=== PATIENT | female | born 1975 | race African-American/Black ===

== ENCOUNTER 2017-10-08 02:57 | Emergency (ER) | payer OTHER ==
[~2017-10-08] VITALS: Ht 162.6 cm; Wt 73.5 kg
[2017-10-08 03:22] VITALS: BP 112/52
[2017-10-08] MEDS ORDERED: HYDROcodone-ACET 10/325MG TAB PO ONE (04:00)
== END 2017-10-08 05:04 | disposition home or self-care (01) ==
LOC: ER 03:06
DX: S63.255A Unspecified dislocation of left ring finger, initial encounter (principal); Y08.89XA Assault by other specified means, initial encounter; Y93.89 Activity, other specified; Y92.89 Other specified places as the place of occurrence of the external cause; Y99.8 Other external cause status
CPT/HCPCS: 26770; 73130

== ENCOUNTER 2024-08-04 16:29 | Emergency (ER) | payer MEDICAID ==
[~2024-08-04] VITALS: Ht 162.6 cm; Wt 83.0 kg
--- NOTE | 2024-08-04 17:39 | ED.PDOC ---
Musculoskeletal HPI Comments HPI: Poor Historian. 49-year-old female presents to the ED complaining of right ankle pain status post trip and fall a week ago going down the stairs. Denies any other injuries. No loss of consciousness. Patient points to her medial and lateral aspect of her right ankle. She said she twisted her ankle when she landed on the step. Patient is neurovascularly intact in the affected extremity. Patient is ambulating with crutches on arrival. Past Medical History: Denies any Past Surgical History: Denies any REVIEW OF SYSTEMS: CONSTITUTIONAL: Denies acute: fever, diaphoresis, chills, generalized weakness. HEAD: Denies acute: headache, photophobia Eyes: Denies acute: Double vision, vision loss, eye pain, eye discharge. EARS: Denies acute: tinnitus, hearing loss, ear discharge, ear pain, THROAT: Denies acute: sore throat, swelling, difficulty swallowing , pain with swallowing, change in voice. NECK: Denies acute: neck pain, neck swelling, stiff neck. HEART: Denies acute : chest pain, palpitations, LUNGS: Denies acute: SOB, wheezing, cough, hemoptysis ABDOMEN: Denies acute: abdominal pain, Nausea, Vomiting, diarrhea, melena , hematemesis, hematochezia SKIN: Denies acute: rash, redness, lesions, itchiness. EXTREMITIES: Denies acute: calf pain, numbness, tingling, weakness, Denies acute: Low back pain. Neuro: Denies acute: focal neurological deficit, motor or sensory focal neurological deficit, tremors, seizure like activity, confusion, dizziness, change in mental status, loss of bowel or bladder function, cauda equina like symptoms. : Denies acute: dysuria, hematuria, flank pain, increase in urinary frequency. PSYCH: Denies acute: hallucination, suicidal ideation, homicidal ideation. FEMALE: Denies acute: abnormal vaginal bleeding, foul odor, unusual discharge. PHYSICAL EXAM: General: --mild------acute distress, awake and alert. Head: normocephalic, atraumatic. Neck: supple, trachea is midline, no swelling. Throat: Normal phonation. Eyes:, no erythema, no purulent discharge, no proptosis, no icterus. Heart: regular rate, regular rhythm, no significant murmur appreciated. Lungs: no apparent respiratory distress, Able to speak in full sentences. No wheezing, no rhonchi, no crackles. No stridors Clear to auscultation bilaterally. Abdomen: non tender to palpation, non distended, soft, no guarding, no rebound, + bowel sounds. Neuro: Awake, Alert, oriented to name, self, situation, follows commands GCS=15. Speech is normal. Skin: no petechia, no purpura, no cyanosis, non-pale, not jaundice. Evaluation of the area of complaint: NEUROVASCULARLY INTACT. NOTED MINIMAL ANKLE SWELLING AND FOCAL TENDERNESS TO PALPATION. NO APPARENT DEFORMITY OR ERYTHEMA. Makes eye contact. moves all four extremities. Face: no apparent facial droop. Pedal pulses are palpable. ED COURSE: Chief Complaint: Lower Extremity Time Seen by MD: 17:01 Primary Care Provider: DR. JACOB Reviewed Notes: Nurses Notes, Allergies Allergies: Coded Allergies: NO KNOWN ALLERGIES (Unverified , 10/08/17) Information Source: Patient Location: Right Was a procedure done? Was a procedure done?: No Differential Diagnosis EXT Differential Diagnosis: Cellulitis, CHF, Deep Vein Thrombosis, Compartment Syndrome, Fracture, Sprain, Dislocation, Laceration, Gout, DJD, Myocardial Inf arction, Contusion, Strain, Rheumatoid, Septic, Neurovascular injury, Arthritis, Bursitis X-Ray, Labs, Meds, VS Vital Signs Date Time Temp Pulse Resp B/P (MAP) Pulse Ox O2 Delivery O2 Flow Rate FiO2 08/04/24 18:48 98.1 77 18 143/83 (103) 97 98.1 08/04/24 18:48 77 18 97 Room Air 08/04/24 17:00 98.8 93 18 149/83 (105) [address] [address] Ph: [phone] DIAGNOSTIC IMAGING Diagnostic Imaging Report : [id number] Signed PATIENT: SAUL LUQUE ACCT: [id number] UNIT: [id number] : 1975 LOC: ER ROOM / BED: / AGE / SEX: 49 / F ADM STATUS: REG ER SERVICE 01 ORDERING PHYSICIAN: ROBERTO CARLOS BARROSO DO PROCEDURE(s): RANKL - R ANKLE 3 VIEW REASON: r ankle pain injury ORDER NUMBER(s): [id number], ACCESSION NUMBER(s): [id number] CLINICAL INDICATION: r ankle pain injury TECHNIQUE: 3 radiographic views of the right ankle were obtained. Comparison: None FINDINGS/IMPRESSION: There is mm density inferior to the lateral malleolus which may represent a small avulsed bony fragment. Recommend correlation with point tenderness. No dislocation. Mild ankle soft tissue edema. ATED BY: PINA BURR DO DICTATED DATE/TIME: 08/04/241813 SIGNED BY: PINA BURR DO SIGNED DATE/TIME: 08/04/241813 CC: Time of 1ST Reevaluation: 18:35 Reevaluation 1ST: Unchanged Patient Education/Counseling: Diagnosis, Treatment Family Education/Counseling: Other Comments Patient presented with the above HPI.---ankle pain injury---workup was initiated. patient was found with the above mentioned diagnosis. the following medications were ordered: please refer to order lists of meds and tests obtained by myself Dr. Barroso. Patient ED course and VS have been stabilized. Patient has been reassessed in the ED and remained in a stable condition. Pertinent incidental findings were discussed with the patient and/or family. Patient/family voices understanding and is agreeable with plan. Patient has been observed in the ED adequate length of time to insure improvement/stability. Escalation of care considered: Consideration of escalation to observation or admission Patient was DISCHARGED home in a stable condition. All the reports of any imaging studies that were ordered by myself were reviewed by myself. Departure 1 Departure Time of Disposition: 18:00 Impression: Primary Impression: Right ankle sprain Disposition: HOME / SELF CARE / HOMELESS Condition: Stable Additional Instructions: Additional instructions: You MUST follow-up with your primary care/family doctor in 1 to 2 days. If you are unable to see your primary care/family doctor, please return to our emergency room for re-assessment and re-evaluation in 1 to 2 days. Return to the emergency room here in our facility or to the nearest ER [facility] if your symptoms change or worsen. CONSULTATIONS: you MUST Follow-up for consultation as soon as possible with: -orthopedic doctor in 1-2 days. Please call for appointment. You MUST call the consultants office yourself to make an appointment. You may need to arrange that through your insurance and/or your primary/family doctor. If you are unable to see the systems development consultant in 1 to 2 days, you must return to our emergency room (or any other ER of your choice) for re-assessment and re- evaluation. Adequate fluid hydration. Leg elevation, ice, [id number] Tylenol ibuprofen for pain control. Below is a copy of your radiological report for follow up: [facility] [id number] [place] [address] Ph: [phone] DIAGNOSTIC IMAGING Diagnostic Imaging Report : [id number] Signed PATIENT: SAUL LUQUE ACCT: [id number] UNIT: [id number] : 1975 LOC: ER ROOM / BED: / AGE / SEX: 49 / F ADM STATUS: REG ER SERVICE 01 ORDERING PHYSICIAN: ROBERTO CARLOS BARRSOO DO PROCEDURE(s): RANKL - R ANKLE 3 VIEW REASON: r ankle pain injury ORDER NUMBER(s): [id number], ACCESSION NUMBER(s): [id number] CLINICAL INDICATION: r ankle pain injury TECHNIQUE: 3 radiographic views of the right ankle were obtained. Comparison: None FINDINGS/IMPRESSION: There is mm density inferior to the lateral malleolus which may represent a small avulsed bony fragment. Recommend correlation with point tenderness. No dislocation. Mild ankle soft tissue edema. ATED BY: PINA BURR DO DICTATED DATE/TIME: 08/04/241813 SIGNED BY: PINA BURR DO SIGNED DATE/TIME: 08/04/241813 CC: Discharged With: Self I personally scribed for ROBERTO CARLOS BARROSO DO ([email or web address]) on 08/04/24 at 17:39. Electronically submitted by Shira Frias ([email or web address]). ROBERTO CARLOS BARROSO DO August 04, 2024 17:39
--- NOTE | 2024-08-04 18:16 | DVH ---
CLINICAL INDICATION: r ankle pain injury TECHNIQUE: 3 radiographic views of the right ankle were obtained. Comparison: None FINDINGS/IMPRESSION: There is mm density inferior to the lateral malleolus which may represent a small avulsed bony fragme nt. Recommend correlation with point tenderness. No dislocation. Mild ankle soft tissue edema.
[2024-08-04] MEDS: HYDROcodone-ACET 5/325MG TAB PO ONE (18:47)
[2024-08-04 18:48] VITALS: BP 143/83; PULSE 77; RESP 18; TEMP 98.1; O2SAT 97
== END 2024-08-04 19:06 | disposition home or self-care (01) ==
LOC: ER 16:29
DX: S93.401A Sprain of unspecified ligament of right ankle, initial encounter (principal); W01.0XXA Fall on same level from slipping, tripping and stumbling without subsequent striking against object, initial encounter; Y93.89 Activity, other specified; Y92.89 Other specified places as the place of occurrence of the external cause; Y99.8 Other external cause status
CPT/HCPCS: 29515; 73610